=== PATIENT | female | born 1970 | race Caucasian/White ===

== ENCOUNTER 2025-05-05 12:02 | Outpatient (REF) | payer SELFPAY ==
[2025-05-05 13:18] LABS: MANUAL DIFF FLAG NO
[2025-05-05 13:21] LABS: Hematocrit 36.2 % (37.0-47.0); Hemoglobin 11.7 g/dl (12.0-16.0); Imm Gran Abs Auto 0.02 X10*3/uL (0.00-0.03); Imm Gran Pct Auto 0.3 % (0.0-0.4); Lymphocytes Absolute Auto 1.5 X10*3/uL (1.2-4.9); Mean Corpuscular HGB Conc 32.3 g/dl (31.0-35.0); Mean Corpuscular Hemoglobin 29.6 pg (27.0-33.0); Mean Corpuscular Volume 91.6 fL (80.0-98.0); NRBC Abs Auto 0.000 X10*3/uL (0.0-0.012); NRBC Pct Auto 0.0 /100WBC (0.0-0.2); Platelet Count 277 X10*3/uL (160-400); Red Blood Count 3.95 X10*6/uL (4.20-5.50); White Blood Count 7.7 X10*3/uL (4.8-10.8)
[2025-05-05 13:41] LABS: Alanine Aminotransferase 12 U/L (0-31); Albumin Level 4.2 g/dL (3.5-5.0); Aspartate Amino Transferase 20 U/L (5-31); Estimated Glomerular Filt Rate > 60
--- OUTSIDE RECORDS SUMMARY | 2025-05-05 16:05 | XMS_ITS | Clinical Summary ---
Author Organization [facility] [address] [facility] Address [address] [place] [address] Phone Care Team Providers Care Electronic Imager Name Role Phone Saroj Chang MD Primary Care Provider [phone] Allergies Active Allergy Reactions Criticality Noted Date Comments Amoxicillin-Pot Clavulanate Cough,Dry Mouth,Hives,Itching,Rash, Swelling High 12/27/2022 Latex Itching,Rash,Swelling Low 12/27/2022 Medications aspirin 81 mg EC tablet Take 1 tablet (81 mg total) by mouth 1 (one) time each day. 4 Active doxycycline (VIBRAMYCIN) 100 mg capsule Take 1 capsule (100 mg total) by mouth 2 (two) times a day. 5 Active folic acid (FOLVITE) 1 mg tablet Take 2 tablets (2,000 mcg total) by mouth 1 (one) time each day. 5 Active hydroxychloroqu ine (PLAQUENIL) 200 mg tablet Take 1 tablet (200 mg total) by mouth 2 (two) times a day. 5 Active leucovorin 5 mg tablet TAKE 1 TABLET BY MOUTH 8 TO 12 HOURS AFTER EACH WEEKLY METHOTREXATE DOSE Active methotrexate 2.5 mg tablet 1 tablet (2.5 mg total) TAKE 8 TABLETS BY MOUTH ONCE WEEKLY ON SATURDAYS Active omeprazole (PriLOSEC) [address] capsule Take 1 capsule (40 mg total) by mouth 1 (one) time each day. Active predniSONE (DELTASONE) 10 mg tablet 2 tablets (20 mg total). 5 Active sertraline (ZOLOFT) 50 mg tablet Take 1 tablet (50 mg total) by mouth 1 (one) time each day. Active tiZANidine (ZANAFLEX) 4 mg tablet Take 1 tablet (4 mg total) by mouth 2 (two) times a day if needed. 5 Active triamcinolone (KENALOG) 0.1 % cream APPLY TOPICALLY TO THE AFFECTED AREA TWICE DAILY NEEDED 5 Active upadacitinib 15 mg tablet extended release 24 hr Take 15 mg by mouth daily. 4 Active valACYclovir (VALTREX) 1 gram tablet Take 1 tablet (1,000 mg total) by mouth. 4 Active bisacodyL (DULCOLAX) 5 mg EC tablet Take 2 tablets by mouth right before beginning bowel prep. See instructions provided by the office 2 tablet 5 Active polyethylene glycol (Golytely) 236-22.74-6.74 -5.86 gram solution Take 4L by mouth once for one dose. May substitue any PEG. Starting at 2PM the day before your procedure drink 1 8oz glasses at your own pace until you complete half of the gallon. Finish 2nd half of the gallon at 8PM. 4000 mL 5 Active polyethylene glycol (Golytely) 236-22.74-6.74 -5.86 gram solution Take 4L by mouth once for one dose. May substitue any PEG. Starting at 2PM the day before your procedure drink 1 8oz glasses at your own pace until you complete half of the gallon. Finish 2nd half of the gallon at 8PM. 4000 mL 5 Active bisacodyL (DULCOLAX) 5 mg EC tablet Take 2 tablets by mouth right before beginning bowel prep. See instructions provided by the office 2 tablet 5 Active Active Problems Problem Noted Date Diagnosed Date Primary osteoarthritis involving multiple joints 02/12/2023 Rheumatoid arthritis involvi ng multiple sites with positive rheumatoid factor 02/12/2023 Sleep disturbances 08/05/2014 ESR raised 01/29/2014 Arthritis of multiple sites 01/28/2014 Supraventricular tachycardia 09/30/2013 Left groin hernia 09/05/2013 Obesity 05/13/2013 Dysmenorrhea 02/05/2013 Menorrhagia 02/05/2013 Surgical History Surgery Date Site/Laterality Comments TOTAL HIP ARTHROPLASTY Left US GROIN/INGUINAL HERNIA Left Social History Tobacco Use Types Packs/Day Years Used Date Smoking Tobacco: Former Cigarettes 1 37.3 1 987 - 09/2023 Comments Unknown Sex and Gender Information Value Date Recorded Sex Assigned at Not on file Legal Sex Female 11:17 PM EST Gender Identity Not on file Sexual Orientation Not on file Last Filed Vital Signs Vital Sign Reading Time Taken Comments Blood Pressure - - Pulse - - Temperature - - Respiratory Rate - - Oxygen Saturation - - Inhaled Oxygen Concentration - - Weight 99.8 kg (220 lb) 08/28/2024 2:20 PM EDT Height 175.3 cm (5' 9 ) 08/28/2024 2:20 PM EDT Body Mass Index 32.49 08/28/2024 2:20 PM EDT Plan of Treatment Health Maintenance Due Date Last Done Comments Breast Cancer Screening 1971 Colorectal Cancer Screening: Colonoscopy 1971 DTaP,Tdap,and Td Vaccines (1 - Tdap) 12/27/1990 Hepatitis B Vaccines (1 of 3 - 19+ 3-dose series) 12/27/1990 Cervical Cancer Screening: P ap Smear 12/27/1992 COVID-19 Vaccine (3 - Pfizer risk series) 07/13/2020 06/15/2020, 05/28/2020 Pneumococcal Vaccine: 50+ Years (1 of 1 - PCV) 12/27/2021 RSV Immunization Adult Patients (1 - Risk 50-74 years 1-dose series) 12/27/2021 Zoster Vaccines (1 of 2) 12/27/2021 Cholesterol Screening (Lipid Panel) 11/27/2023 HIV Screening 11/27/2023 Hepatitis C Screening 11/27/2023 Lung Cancer Screening (Low Dose CT) 11/27/2023 Social Influencers of Health Screening 11/27/2023 Depression Screening 05/07/2024 Influenza Vaccine (#1) 2025 HIB Vaccines Aged Out No longer eligi ble based on patient's age to complete this topic HPV Vaccines Aged Out No longer eligi ble based on patient's age to complete this topic Hepatitis A Vaccines Aged Out No long er eligible based on patient's age to complete this topic IPV Vaccines Aged Out No longer eligi ble based on patient's age to complete this topic MMR Vaccines Aged Out No longer eligi ble based on patient's age to complete this topic Meningococcal ACWY Vaccine Aged Out N o longer eligible based on patient's age to complete this topic Meningococcal B Vaccine Aged Out No l onger eligible based on patient's age to complete this topic RSV Immunization Patients Under 20 months Aged Out No longer eligible b ased on patient's age to complete this topic Varicella Vaccines Aged Out No longer eligible based on patient's age to complete this topic Insurance [facility] Care Teams Electronic Imager Relationship Specialty Start Date End Date Saroj Chang MD [address] [place] [id number] PCP - General 09/12/23
--- OUTSIDE RECORDS SUMMARY | 2025-05-05 16:05 | XMS_ITS | Clinical Summary ---
Author Organization [facility] Address [address] [place] [phone] Phone Care Team Providers Care Division Supervisor Name Role Phone Saroj Hickman MD Primary Care Provider Allergies Active Allergy Reactions Criticality Noted Date Comments Amoxicillin-Pot Clavulanate Itching,Rash,Swelling Low 12/27/2022 Latex Itching,Rash,Swelling Low 12/27/2022 Medications sertraline (ZOLOFT) 50 MG tablet Take 1 tablet by mouth every morning. 3 Active acetaminophen (TYLENOL ARTHRITIS PAIN) 650 MG CR tablet Take 1 tablet by mouth 2 (two) times a day as needed. Active folic acid (FOLVITE) 1 MG tablet Take 2 tablets (2 mg total) by mouth every morning. 180 tablet 2 3 Active omeprazole (PRILOSEC) 40 MG capsule Take 40 mg by mouth. 4 Active upadacitinib (RINVOQ) 15 mg ER 24 hr tabletIndicatio ns:Rheumatoid arthritis involving multiple sites with positive rheumatoid factor Take 1 tablet (15 mg total) by mouth daily. 90 tablet 1 4 Active methylPREDNISol one (MEDROL DOSEPACK) 4 mg tablet follow package directions 21 tablet 2 4 Active [id number] 1 mg-25 mg-12.5 mg-1 mg Tab Active methylPREDNISol one (MEDROL) 4 MG tablet Take 2 tablets (8 mg total) by mouth daily as needed. 60 tablet 1 4 Active Active Problems Problem Noted Date Diagnosed Date Rheumatoid arthritis involvi ng multiple sites with positive rheumatoid factor 02/12/2023 Assessment & Plan (11/02/2023 10:46 AM EDT): Seropositive rheumatoid arthritis not controlled with recurrent flares of swelling and synovitis. She just started taking Rinvoq 2 weeks ago limited will need more time to become therapeutic. Sent her a prescription for Medrol she can use only as needed. Gave her an intramuscular injection of triamcinolone 80 mg to help calm down this flare. Assessment & Plan (09/16/2023 8:53 PM EDT): Seropositive rheumatoid arthritis not yet fully controlled. She has active synovitis in multiple joints but her more main issue is the significant hip arthritis. She has pain with even minimal movement. She is likely to need a hip replacement and is already seeing orthopedics. At her request we will try and get her sooner appointment with orthopedics at [facility]. Assessment & Plan (07/26/2023 10:42 AM EDT): Seropositive rheumatoid arthritis not well-controlled since she has not been taking Rinvoq. She is willing to start Rinvoq at this time which she will hopefully tolerate. Assessment & Plan (04/11/2023 8:30 AM EST): Seropositive RA not controlled with stiffness, synovitis and fatigue. She took her last Humira in Feb and she has stopped Leflunomide. Will switch her to daily Rinvoq. She will fax me her last Rheum office note from [facility] as well as Hep b, C Quantiferon Gold and RF/CCP. Assessment & Plan (02/12/2023 5:13 PM EDT): Seropositive rheumatoid arthritis not yet fully controlled with continued stiffness achiness and mild swelling. Continue with Humira every other week and daily leflunomide. At her next visit we can consider discontinuing leflunomide, once Humira is therapeutic. She will fax me her last rheumatology office note from [facility] as well as recent labs that were done including hep B, hep C and QuantiFERON gold. Primary osteoarthritis involving multiple joints 02/12/2023 Assessment & Plan (11/02/2023 10:41 AM EDT): Osteoarthritis in multiple joints. She can take Tylenol 650 mg as needed. Assessment & Plan (09/16/2023 8:53 PM EDT): Osteoarthritis in multiple joints. She can take Tylenol arthritis 650 mg as needed. Assessment & Plan (07/26/2023 10:42 AM EDT): Osteoarthritis in multiple joints. She can take Tylenol 6 and 50 mg as needed. Assessment & Plan (04/11/2023 8:30 AM EST): OA in multiple joints. Can take Tylenol 650mg as needed. Assessment & Plan (02/12/2023 5:12 PM EDT): Degenerative osteoarthritis in multiple areas with no ranjith swelling. She can try Tylenol arthritis 650 mg tablets as needed. Social History Tobacco Use Types Packs/Day Years Used Date Smoking Tobacco: Every Day Cigarettes Smokeless Tobacco: Never Tobacco Cessation:Ready to Q uit: Not Asked; Counseling Given: Not Answered Alcohol Use Standard Drinks/Week Comments Never 0 (1 standard drink = 0.6 oz pur e alcohol) Education Answer Date Recorded Are you interested in more education? Not on cari e 12/21/2022 Are you concerned about learning? Not on file 12/21/2022 No 12/21/2022 No 12/21/2022 Digital Access Answer Date Recorded No 12/21/2022 No 12/21/2022 Reliable internet access at home? Not on file 12/21/2022 Device with a working camera? Not on file Comments Unknown Sex and Gender Information Value Date Recorded Sex Assigned at Not on file Legal Sex Female 8:50 AM EDT Gender Identity Not on file Sexual Orientation Not on file Last Filed Vital Signs Vital Sign Reading Time Taken Comments Blood Pressure 128/78 11/02/2023 8:36 AM EDT Pulse 62 11/02/2023 8:36 AM EDT Temperature - - Respiratory Rate - - Oxygen Saturation 98% 11/02/2023 8:36 AM EDT Inhaled Oxygen Concentration - - Weight 93 kg (205 lb) 11/02/2023 8:36 AM EDT Height 175.3 cm (5' 9 ) 11/02/2023 8:36 AM EDT Body Mass Index 30.27 11/02/2023 8:36 AM EDT Plan of Treatment Health Maintenance Due Date Last Done Comments Adult Td,Tdap Booster 1971 LIPID PANEL 1971 COVID-19 VACCINE (#1) 12/27/1976 DEPRESSION SCREENING 1983 SMOKING Hx and SMOKELESS TOB ACCO SCREENING 12/27/1984 HEPATITIS C SCREENING 12/27/1989 HIV ONE-TIME SCREENING (18-6 5 YEARS) 12/27/1989 PNEUMOCOCCAL VACCINES (50+ y ears) (1 of 2 - PCV) 12/27/1990 ZOSTER VACCINES (1 of 2) 12/27/1990 PAP SMEAR 12/27/1992 SCREENING FOR DIABETES 12/27/2006 MAMMOGRAM 2011 COLOGUARD 12/27/2016 COLONOSCOPY 12/27/2016 COLORECTAL CANCER SCREENING 12/27/2016 FIT TEST 12/27/2016 FOBT 12/27/2016 SIGMOIDOSCOPY 12/27/2016 VIRTUAL COLONOSCOPY 12/27/2016 RSV VACCINE (1 - Risk 50-74 years 1-dose series) 12/27/2021 INFLUENZA VACCINE (#1) 2024 HEPATITIS A VACCINES Aged Out No long er eligible based on patient's age to complete this topic HIB VACCINES Aged Out No longer eligi ble based on patient's age to complete this topic MENINGOCOCCAL VACCINES (ACWY) Aged Out No longer eligible based on patient's age to complete this topic MENINGOCOCCAL VACCINES (B) Aged Out N o longer eligible based on patient's age to complete this topic Medical Devices Not on file Insurance [facility] HMO [facility] HMO Care Teams Division Supervisor Relationship Specialty Start Date End Date Saroj Hickman MD [address] [place] [id number] PCP - General Internal Medicine 12/21/22 Additional Source Comments The information contained in this document represents components of the legal health record. It is not the complete legal health record.[facility]
--- OUTSIDE RECORDS SUMMARY | 2025-05-05 16:05 | XMS_ITS | Clinical Summary ---
Author Organization [facility] Prior to 10/04/24 Address [address] [place] [address] Care Team Providers Care Music Cataloguer Name Role Phone Unavailable Primary Care Provider Unavailabl e Allergies No known active allergies Immunizations Name Administration Dates Next Due Covid-19 (Pfizer) Dilution Required 06/15/2020,0 05/28/2020 Social History Tobacco Use Types Packs/Day Years Used Date Smoking Tobacco: Never Assessed Sex and Gender Information Value Date Recorded Sex Assigned at Not on file Gender Identity Not on file Sexual Orientation Not on file Job Start Date Occupation Industry Not on file Not on file Not on file Plan of Treatment Health Maintenance Due Date Last Done Comments Hepatitis B Vaccines (1 of 3 - 3-dose series) 1971 Hepatitis C Screening 1971 Depression Screening 1983 Preventative Health Evaluation 12/27/1989 DTap / Tdap / Td (1 - Tdap) 12/27/1990 Cervical Cancer Screening (Pap Smear) 12/27/1992 Colon Cancer Screening (Colonoscopy) 12/27/2016 Breast Cancer Screening (Mammogram) 12/27/2021 Shingrix-Zoster Vaccine (1 o f 2) 12/27/2021 COVID-19 Vaccine (3 - 2024-2 6 season) 2025 06/15/2020, 05/28/2020 Influenza Vaccine (#1) 2025 Pneumococcal Vaccine Aged Out No long er eligible based on patient's age to complete this topic RSV Ped < 20 months Aged Out No longe r eligible based on patient's age to complete this topic Insurance Payer Benefit Plan / Group Subscriber ID Effective Dates Phone Address [facility] [id number] 2023-Present [address] [place] [phone] HMO
--- OUTSIDE RECORDS SUMMARY | 2025-05-05 16:05 | XMS_ITS | Clinical Summary ---
Author Organization [facility] Address [address] [place] [address] Care Team Providers Care Music Worker Name Role Phone Saroj Chang Primary Care Provider [phone] Allergies Active Allergy Reactions Criticality Noted Date Comments Amoxicillin-Pot Clavulanate Cough,Dry mouth,Hives,Itching,Rash, Swelling High 12/27/2022 Medications methotrexate 2.5 mg tablet Take 20 mg by mouth once a week. 4 Active ergocalciferol (VITAMIN D2) 50,000 unit capsule Take 50,000 Units by mouth every 7 days. 5 Active leucovorin 5 mg tablet Take 10 mg by mouth once a week. 8 to 10 hours after methotrexate Active folic acid (FOLVITE) 1 mg tablet Take 1 tablet (1,000 mcg total) by mouth daily. 90 tablet 1 8 Active sertraline (ZOLOFT) 50 mg tablet Take 50 mg by mouth once a day. 3 Active omeprazole (PriLOSEC) 40 mg capsule TAKE 1 CAPSULE(40 MG) BY MOUTH EVERY DAY 90 capsule 4 Active Active Problems Problem Noted Date Diagnosed Date Sleep disturbances 08/05/2014 Acute bronchitis 06/05/2014 Rheumatoid arthritis 02/25/2014 ESR raised 01/29/2014 Acute pharyngitis 01/28/2014 Arthritis of multiple sites 01/28/2014 Supraventricular tachycardia 09/30/2013 Left groin hernia 09/05/2013 Cough 06/10/2013 Upper respiratory infection 06/10/2013 Obesity 05/13/2013 Dysmenorrhea 02/05/2013 Menorrhagia 02/05/2013 Family History Medical History Relation Name Comments Other Mother Maternal histor y of Mature T-cell Lymphoma Other Other Family history of Osteoporosis Relation Name Status Comments Mother Other Social History Tobacco Use Types Packs/Day Years Used Date Smoking Tobacco: Every Day Cigarettes Smokeless Tobacco: Former Tobacco Cessation:Ready to Q uit: Not Asked Comments:: Alcohol Use Standard Drinks/Week Comments Not Currently 0 (1 standard drink = 0.6 oz pur e alcohol) Comments Unknown Sex and Gender Information Value Date Recorded Sex Assigned at Female 05/31/2023 7:16 PM EST Legal Sex Female 12:00 AM EDT Gender Identity Female 05/31/2023 7:16 PM EST Sexual Orientation Straight 05/31/2023 7: 16 PM EST Last Filed Vital Signs Vital Sign Reading Time Taken Comments Blood Pressure 146/86 06/01/2023 2:02 PM EST Pulse 65 06/01/2023 2:02 PM EST Temperature 36.3 C (97.4 F) 01/11/2017 11:31 AM EDT Respiratory Rate 18 06/01/2023 2:02 PM EST Oxygen Saturation 97% 06/01/2023 2:02 PM EST Inhaled Oxygen Concentration - - Weight 87 kg (191 lb 12.8 oz) 08/14/2023 3:05 PM EDT Height 175.3 cm (5' 9.02 ) 06/01/2023 2:02 PM ES T Body Mass Index 28.31 06/01/2023 2:02 PM EST Plan of Treatment Health Maintenance Due Date Last Done Comments Cervical Cancer Screening 1971 Cologuard 1971 Colon Cancer Screening 1971 Colonoscopy 1971 FOBT / Fit Test 1971 HIV Screening 1971 HPV and Pap Smear 1971 Hepatitis C Screening 1971 Pap Smear 1971 Sigmoidoscopy 1971 Hepatitis B Vaccines (1 of 3 - 19+ 3-dose series) 12/27/1990 Pneumococcal Vaccine: 50+ Ye ars (1 of 2 - PCV) 12/27/1990 DTaP,Tdap,and Td Vaccines (1 - Tdap) 12/27/1993 Zoster Vaccines (1 of 2) 12/27/2021 CT Lung Cancer Screening (Baseline) 03/16/202403/16 Alcohol/Substance Use Screening 05/07/2024 Depression Screening and Follow-Up 05/07/2024 Social Drivers of Health Annual Screening 05/07/2024 Influenza Vaccine (#1) 2024 COVID-19 Vaccine ( season) 01/05/202501/2021, 05/28/2020 Mammogram 04/04/2025 04/04/2023 Procedures * Due to [place] [employer] law, this organization might not be sharing negative HIV tests. Procedure Name Priority Date/Time Associated Diagnosis Comments HM MAMMOGRAPHY, UNILATERAL 04/04/[address] CHEST, OUTSI DE RESULT 03/16/2023 from Last 3 Months or Most Recently Relevant to Health Maintenance Results * Due to [place] [employer] law, this organization might not be sharing negative HIV tests. * HM MAMMOGRAPHY, UNILATERAL (04/04/2023) Anatomical Region Laterality Modality Other 04/04/2023 us Onbase Scan [facility] MAINTENANCE Final Resu lt * AMB EXTERNAL CT CHEST, OUTSIDE RESULT (03/16/2023) 03/16/2023 us Onbase Scan [facility] AMB EXTERNAL RESULT PROCEDURE S Final Result from Last 3 Months or Most Recently Relevant to Health Maintenance Insurance [facility] Care Teams Music Worker Relationship Specialty Start Date End Date Saroj Chang [address] [place] [address] PCP - General Internal Medicine 05/02/23
== END 2025-05-05 12:03 | disposition home or self-care (01) ==
LOC: HO.10HDL 12:02
PROVIDERS: Visit Provider Internal Medicine Rheumatology
DX: M06.9 Rheumatoid arthritis, unspecified (principal)
CPT/HCPCS: 36415; 82040; 82565; 84450; 84460; 85025; 85652; 86140

== ENCOUNTER 2025-05-06 08:18 | Outpatient (REF) | payer OTHER, SELFPAY ==
[2025-05-06 15:21] LABS: Resp Syncy Virus RNA Qual PCR NEGATIVE (Negative); SARS COV2 PCR INHOUSE POSITIVE (Negative)
== END 2025-05-06 08:19 | disposition home or self-care (01) ==
LOC: HO.LAB 08:18
PROVIDERS: PCP Internal Medicine; Visit Provider Physician Assistant
DX: Z03.818 Encounter for observation for suspected exposure to other biological agents ruled out (principal)
CPT/HCPCS: 87637; 87880

== ENCOUNTER 2025-05-06 08:18 | Outpatient (AMB) | payer OTHER, SELFPAY ==
--- OUTSIDE RECORDS SUMMARY | 2025-05-06 08:22 | XMS_ITS | Clinical Summary ---
Author Organization [facility] [address] [facility] Address [address] [place] [address] Phone Care Team Providers Care Professor Of Anthropology Name Role Phone Saroj Chang MD Primary Care Provider [phone] Allergies Active Allergy Reactions Criticality Noted Date [...] patient's age to complete this topic Insurance [facility] Care Teams Professor Of Anthropology Relationship Specialty Start Date End Date Saroj Chang MD [address] [place] [id number] PCP - General 09/12/23
--- OUTSIDE RECORDS SUMMARY | 2025-05-06 08:22 | XMS_ITS | Clinical Summary ---
Author Organization [facility] Address [address] [place] [address] Care Team Providers Care Crowning Inspector Name Role Phone Saroj Chang Primary Care Provider [phone] Allergies Active Allergy Reactions Criticality Noted Date [...] Mammogram 04/04/2025 04/04/2023 Procedures * Due to [place] [employer] law, this organization might not be sharing negative HIV tests. Procedure Name Priority Date/Time Associated Diagnosis Comments HM MAMMOGRAPHY, UNILATERAL 04/04/[address] CHEST, OUTSI DE RESULT 03/16/2023 from Last 3 Months or Most Recently Relevant to Health Maintenance Results * Due to [place] [employer] law, this organization might not be sharing negative HIV tests. * HM MAMMOGRAPHY, UNILATERAL (04/04/2023) Anatomical Region Laterality Modality Other 04/04/2023 us Onbase Scan [facility] MAINTENANCE Final Resu lt * AMB EXTERNAL CT CHEST, OUTSIDE RESULT (03/16/2023) 03/16/2023 us Onbase Scan [facility] AMB EXTERNAL RESULT PROCEDURE S Final Result from Last 3 Months or Most Recently Relevant to Health Maintenance Insurance [facility] Care Teams Crowning Inspector Relationship Specialty Start Date End Date Saroj Chang [address] [place] [address] PCP - General Internal Medicine 05/02/23
--- OUTSIDE RECORDS SUMMARY | 2025-05-06 08:22 | XMS_ITS | Clinical Summary ---
Author Organization [facility] Prior to 10/04/24 Address [address] [place] [address] Care Team Providers Care Cooling Tower Technician Name Role Phone Unavailable Primary Care Provider [...] Group Subscriber ID Effective Dates Phone Address [facility] [id number] 2023-Present [address] [place] [phone] HMO
--- OUTSIDE RECORDS SUMMARY | 2025-05-06 08:22 | XMS_ITS | Clinical Summary ---
Author Organization [facility] Address [address] [place] [phone] Phone Care Team Providers Care Rectification Printer Name Role Phone Saroj Hickman MD Primary [...] package directions 21 tablet 2 4 Active [id number] 1 mg-25 mg-12.5 mg-1 mg Tab Active [...] get her sooner appointment with orthopedics at [facility]. Assessment & Plan (07/26/2023 10:42 AM EDT): [...] me her last Rheum office note from [facility] as well as Hep b, C Quantiferon Gold and RF/CCP. Assessment & Plan (02/12/2023 5:13 PM EDT): Seropositive rheumatoid arthritis not yet fully controlled with continued stiffness achiness and mild swelling. Continue with Humira every other week and daily leflunomide. At her next visit we can consider discontinuing leflunomide, once Humira is therapeutic. She will fax me her last rheumatology office note from [facility] as well as recent labs that were [...] topic Medical Devices Not on file [facility] HMO Care Teams Rectification Printer Relationship Specialty Start Date End Date Saroj Hickman MD [address] [place] [id number] PCP - General Internal Medicine 12/21/22 Additional Source Comments The information contained in this document represents components of the legal health record. It is not the complete legal health record.[facility]
--- NOTE | 2025-05-06 08:23 | MHC.OFFWIV ---
Intake Vital Signs 05/06/25 08:26 Height 5 ft 8 in Weight 202 lb BMI 30.7 BP 104/59 L Blood Pressure Location Lt brachial Position Sitting Respiration 16 Pulse 76 Pulse Source Pulse Oximeter Temp 99.3 F Temp Source Oral Pulse Oximetry (%) 96 Oxygen Delivery Method Room Air Intake Visit Reasons: [employer]PER[employer]CE[employer]ING [employer]ING- URI Intake Note: [employer]PER[employer]ING complains of sore throat, cough, nasal and chest congestion started this morning while discomfort, and sinus pressure started since Apr 30. Allergies amoxicillin (From Augmentin) Allergy (Severe, Verified 05/06/25 08:38) Shortness of Breath clavulanic acid (From Augmentin) Allergy (Severe, Verified 05/06/25 08:38) Shortness of Breath Penicillins Allergy (Severe, Verified 05/06/25 08:38) Facial Swelling Do you need a note to return to daycare/school/sports/work: Yes HPI HPI Comments History of Present Illness Details History - The patient is a 54 year old female presenting with symptoms of an acute viral illness x 1 day. - Her symptoms began on with a sore throat, which she initially attributed to allergies. - She reported feeling better with only mild congestion by Sunday, but woke up this morning feeling acutely ill, as though she had been run over by a bus. - Associated symptoms include fatigue, headaches, ear pain and sinus pain. - She denies any shortness of breath, trouble breathing, or history of asthma or COPD. - For her current symptoms, she has been taking an [id number]-[id number] flu medication and ibuprofen. - Her past medical history is significant for a condition treated with methotrexate and Plaquenil. - Due to her current illness, she held her methotrexate this week and has not taken Plaquenil for the past two days. Review of Systems - Constitutional: Reports fatigue and feeling acutely ill. - HEENT: Reports sore throat, nasal congestion, sinus pain, and headaches. - Respiratory: Denies dyspnea or difficulty breathing. All systems reviewed and are unremarkable except as noted in HPI Physical Exam General: Cooperative, healthy appearing, comfortable and no acute distress Orientation/consciousness: Patient oriented x3 Limitations: No limitations Head: Normal to inspection Ears: Hearing grossly normal bilaterally, external ears normal, EAC's normal bilaterally and TM's normal bilaterally Nose: Normal external nose present, Normal nares present and No nasal discharge present Face and sinus: Normal facial exam and sinuses tender Mouth: Normal oral and palatal mucosa present and moist mucous membranes Throat: tonsils normal, no exudates, uvula midline, posterior oropharynx erythema Eyes: Appearance normal, both eyes and all related structures Neck: Normal visual inspection, full ROM Respiratory: Clear to auscultation bilaterally. Normal respiratory effort, able to speak in complete sentences, no respiratory distress, not tachypneic, no tripod positioning and no use of accessory muscles Cardiovascular: Regular rate and rhythm. Normal S1 and S2 Skin: No rashes or lesions noted Neuro: Patient oriented x3 Extremities: Normal to inspection and Yes no clubbing, cyanosis or edema Physical Exam Vital Signs: Last Vital Signs Temp 99.3 F 05/06/25 08:26 Pulse 76 05/06/25 08:26 Resp 16 05/06/25 08:26 BP 104/59 L 05/06/25 08:26 Pulse Ox 96 05/06/25 08:26 Oxygen Delivery Method Room Air 05/06/25 08:26 BMI result Body Mass Index 30.7 Results AMB Rapid Strep AMB Rapid Strep Negative Last Edit by Sidney Fairbanks MA on 05/06/25 08:47 Results Reviewed Results Reviewed: Laboratory Last Values Strep Scn [facility] Negative 05/06/25 08:45 Assessment & Plan Assessment & Plan (1) Acute viral syndrome: Code(s): B34.9 - Viral infection, unspecified Plan: Patient was informed and verbally consented to the use of an ambient scribe for clinic note documentation during this visit. - VSS, pt well appearing and PE unremarkable. - The patient's presentation with acute onset of severe systemic symptoms, described as feeling hit by a bus, is highly suggestive of influenza. - Rapid strep was negative. - A nasal swab for a Flu/COVID/RSV PCR panel was collected. - A prescription for Tamiflu (oseltamivir), to be taken twice daily for five days, will be sent to the pharmacy. - The patient was instructed to only fill and start the Tamiflu if her flu test result is positive, with the holiday, this was the most logical way to manage it. - The patient was advised to access her patient portal to check for results, with assistance from the medical front desk coordinator staff if needed. - The patient is taking methotrexate and Plaquenil, which she has held due to her acute illness. - Recommended she notify her prescribing provider, Dr. Linares, of her current illness and the temporary cessation of these medications to ensure they approve of this management. Orders: Orders SARS-CoV2/FLU/RSV Today R09.89 - Other specified symptoms and signs involving the circulatory and respiratory systems AMB Rapid Strep Screen Today Z13.9 - Encounter for screening, unspecified Medications: New oseltamivir (Tamiflu) 75 mg PO Q12H 10 caps 0RF 5 days Coding Level of Care Code New Pt Level 3 (93937) Diagnoses Acute viral syndrome B34.9
[2025-05-06 08:26] VITALS: BP 104/59; PULSE 76; RESP 16; TEMP 37.4; O2SAT 96; BMI 30.7
== END 2025-05-06 09:02 | disposition home or self-care (01) ==
PROVIDERS: PCP Internal Medicine; Visit Provider Physician Assistant
DX: Z13.9 Encounter for screening, unspecified (principal); B34.9 Viral infection, unspecified